=== PATIENT | male | born 1975 | race Caucasian/White ===

== ENCOUNTER → 2024-07-12 | Outpatient (CLI) ==
[~2024-07-12] MED LIST: BUPR-71 PO; NICO1DIS10 TD; NICO4GUM44; ROSU20TA86 PO
== END ==
LOC: M SOG 15:41
PROVIDERS: ATTEND Physician Assistant
DX: S62.501D Fracture of unspecified phalanx of right thumb, subsequent encounter for fracture with routine healing (principal)

== ENCOUNTER 2024-07-18 09:57 | Day surgery (SDC) | payer BC ==
[~2024-07-18] VITALS: Ht 182.9 cm; Wt 85.4 kg
[~2024-07-18 09:57] MED LIST changes: +LIDOCAINE 2% 100MG/5ML SDV (FOR ANES.) As Ordered ONE; +MIDAZOLAM INJ 2MG/2ML VIAL As Ordered ONE; +ONDANSETRON 4MG 2ML VIAL As Ordered ONE; +ROCURONIUM BROMIDE 50MG/5ML VIAL As Ordered ONE; +SUGAMMADEX SODIUM 500 MG/5 ML VIAL (BRIDION) As Ordered ONE; +fentaNYL 100 MCG/2 ML INJECTION As Ordered ONE; +propofoL 200 MG/20 ML VIAL As Ordered ONE
[2024-07-18] MEDS ORDERED: LR 1,000 ML IV SCH ×2 (10:25→13:05)
[2024-07-18] MEDS ORDERED: ePHEDrine SULFATE 25 MG/5 ML(5MG/ML) SYRINGE As Ordered ONE (11:17)
[2024-07-18] MEDS ORDERED: PHENYLephrine 500MCG 5ML (100MCG/ML) SYRINGE As Ordered ONE (11:17)
[2024-07-18] MEDS: ceFAZolin 2 GM/D5W 50 ML IV BAG As Ordered ONE (11:50)
[2024-07-18] MEDS ORDERED: ACETAMINOPHEN 1000MG 100ML IV BAG As Ordered ONE (12:02)
[2024-07-18] MEDS: ceFAZolin SOD 2 GM in IV 1 EA IV ONE (12:25)
[2024-07-18] MEDS: BACITRACIN OINTMENT 30GM TUBE As Ordered ONE (12:26)
[2024-07-18] MEDS ORDERED: KETOROLAC 60MG 2ML VIAL As Ordered ONE (12:46)
[2024-07-18] MEDS ORDERED: fentaNYL 100 MCG/2 ML INJECTION IV PRN (13:05)
[2024-07-18] MEDS ORDERED: ONDANSETRON 4MG 2ML VIAL IV PRN (13:05)
[2024-07-18] MEDS ORDERED: oxyCODONE 5MG TAB PO PRN (13:05)
[2024-07-18] MEDS ORDERED: PERCOCET PO (13:06)
[2024-07-18] MEDS ORDERED: CEPH500C PO (13:06)
[2024-07-18] MEDS: HYDROMORPHONE HCL 0.5 MG/ 0.5 ML SYRINGE IV PRN (13:18)
[2024-07-18 14:00] VITALS: BP 150/75; TEMP 97.4; O2SAT 97
== END 2024-07-18 14:05 | disposition home or self-care (01) ==
LOC: M SDC 09:57
PROVIDERS: ATTEND Orthopaedic Surgery Hand Surgery
DX: S62.501G Fracture of unspecified phalanx of right thumb, subsequent encounter for fracture with delayed healing (principal); W55.41 Bitten by pig; Y92.89 Other specified places as the place of occurrence of the external cause; Y93.9 Activity, unspecified; Y99.9 Unspecified external cause status; E78.5 Hyperlipidemia, unspecified; F17.200 Nicotine dependence, unspecified, uncomplicated; Z87.891 Personal history of nicotine dependence; Z79.899 Other long term (current) drug therapy; Z88.0 Allergy status to penicillin
CPT/HCPCS: 11760; 26765; 76000; 87070; 87075; 87077; 87186; 87205; J0131; J0665; J0690; J1100; J1171; J1885; J2250; J2371; J2405; J3010

== ENCOUNTER → 2024-07-27 | Outpatient (CLI) | payer BC ==
[~2024-07-27] MED LIST changes: +CEPH500C PO; -LIDOCAINE 2% 100MG/5ML SDV (FOR ANES.) As Ordered ONE; -MIDAZOLAM INJ 2MG/2ML VIAL As Ordered ONE; -ONDANSETRON 4MG 2ML VIAL As Ordered ONE; +PERCOCET PO; -ROCURONIUM BROMIDE 50MG/5ML VIAL As Ordered ONE; -SUGAMMADEX SODIUM 500 MG/5 ML VIAL (BRIDION) As Ordered ONE; -fentaNYL 100 MCG/2 ML INJECTION As Ordered ONE; -propofoL 200 MG/20 ML VIAL As Ordered ONE
== END ==
LOC: M SOG 11:46
PROVIDERS: ATTEND Physician Assistant
DX: S62.501A Fracture of unspecified phalanx of right thumb, initial encounter for closed fracture (principal); Y93.9 Activity, unspecified; Y92.9 Unspecified place or not applicable

== ENCOUNTER → 2024-08-23 | Outpatient (CLI) | payer BC | LOC: M SOG 07:51 | PROVIDERS: ATTEND Physician Assistant | DX: S62.201D Unspecified fracture of first metacarpal bone, right hand, subsequent encounter for fracture with routine healing (principal) ==

== ENCOUNTER → 2024-09-10 | Outpatient (CLI) | payer BC | LOC: M SOG 07:54 | PROVIDERS: ATTEND Physician Assistant | DX: S62.501D Fracture of unspecified phalanx of right thumb, subsequent encounter for fracture with routine healing (principal) ==

== ENCOUNTER → 2024-10-01 | Outpatient (CLI) | payer BC | LOC: M SOG 07:50 | PROVIDERS: ATTEND Physician Assistant | DX: S62.521D Displaced fracture of distal phalanx of right thumb, subsequent encounter for fracture with routine healing (principal); Y93.9 Activity, unspecified; Y92.9 Unspecified place or not applicable ==

== ENCOUNTER → 2024-11-02 | Outpatient (CLI) | payer BC | LOC: M SOG 07:49 | PROVIDERS: ATTEND Physician Assistant | DX: S62.501D Fracture of unspecified phalanx of right thumb, subsequent encounter for fracture with routine healing (principal) ==

== ENCOUNTER → 2024-11-29 | Outpatient (CLI) | payer BC | LOC: M SOG 07:54 | PROVIDERS: ATTEND Physician Assistant | DX: S62.501D Fracture of unspecified phalanx of right thumb, subsequent encounter for fracture with routine healing (principal) ==

== ENCOUNTER → 2025-01-04 | Outpatient (CLI) | payer BC | LOC: M SOG 07:47 | PROVIDERS: ATTEND Physician Assistant | DX: S62.501D Fracture of unspecified phalanx of right thumb, subsequent encounter for fracture with routine healing (principal) ==

== ENCOUNTER → 2025-01-28 | Outpatient (CLI) | payer BC | LOC: M SOG 07:52 | PROVIDERS: ATTEND Physician Assistant | DX: S62.501D Fracture of unspecified phalanx of right thumb, subsequent encounter for fracture with routine healing (principal) ==